=== PATIENT | male | born 1970 | race Caucasian/White ===

== ENCOUNTER 2016-05-17 04:27 | Emergency (ER) | payer BC ==
--- NOTE | 2016-05-22 07:42 | ER ---
ADMIT: 05/17/2016 RM/LOC: ER [facility] MR#: [id number] [facility] [address] [place], [place] [address] ALAINA LEE [address] [place] [address] Emergency Room Report SEX: M AGE: 45 : 1970 DATE: 05/17/2016 TIME: 042 Please refer to my T-sheet for complete H and P. HISTORY OF PRESENT ILLNESS: Briefly, the patient is a 45-year-old who has a history of chronic back pain. He says it comes and goes. A couple of days ago, he was bending over and started having back pain, worse when he moves. No loss of bowel or bladder incontinence. He has taken a muscle relaxant and tried, it has not helped and he is here for evaluation. PHYSICAL EXAMINATION: VITAL SIGNS: Stable. ABDOMEN: Soft. BACK: He has tenderness in his lower lumbar spine diffusely. EXTREMITIES: Grossly normal. NEURO: He is alert, oriented, nonfocal. EMERGENCY DEPARTMENT COURSE: I gave him Dilaudid 1 mg IM, prednisone 20 p.o., he was ready for discharge. ASSESSMENT: 1. Acute on chronic back pain. 2. Myofascial spasm. PLAN: Prednisone 20 a day for 5 more days. Continue Flexeril, Tylenol, Motrin. Return if worse, and follow up with Family Practice. Terrance Keys MD/ [facility]idio JOB #: [id number] CC: Terrance Keys MD, Attending Physician
== END 2016-05-17 05:20 | disposition home or self-care (01) ==
LOC: ER 04:27
DX: G89.29 Other chronic pain (principal); M54.5 Low back pain; M79.1 Myalgia